=== PATIENT | male | born 2000 ===

== ENCOUNTER 2022-04-23 11:53 | Emergency (ER) | payer OTHER ==
[~2022-04-23] VITALS: Ht 157.5 cm; Wt 54.4 kg
== END 2022-04-23 18:06 | disposition designated cancer center or children's hospital (05) ==
LOC: EMR PED 11:53
DX: T15.92XA Foreign body on external eye, part unspecified, left eye, initial encounter (principal); X58.XXXA Exposure to other specified factors, initial encounter; Y93.9 Activity, unspecified; Y92.9 Unspecified place or not applicable; Y99.9 Unspecified external cause status; Z20.822 Contact with and (suspected) exposure to COVID-19